=== PATIENT | male | born 1935 | race Caucasian/White ===

== ENCOUNTER 2016-08-04 14:03 | Inpatient (IN) | payer OTHER ==
[2016-08-04] MEDS ORDERED: NS 1,000 ML IV ONE (14:10)
[2016-08-04 15:28] LABS: MANUAL DIFF NEEDED? NO
[2016-08-04] MEDS ORDERED: ZOFRAN IV ONE (15:42)
[2016-08-04] MEDS ORDERED: VANCOMYCIN 1 GM/NS 250 ML IV ONE (15:44)
[2016-08-04] MEDS ORDERED: ZOSYN 3.375 GM/NS 50 ML IV ONE (15:44)
[2016-08-04 15:56] LABS: BASO% 0.1 % (0.0-0.8); EOS% 2.3 % (0.0-10.0); HEMATOCRIT 26.2 % (42.0-52.0); HEMOGLOBIN 8.4 g/dL (14.0-18.0); IMM GRAN# 0.09 X1000 (0.0-0.04); IMM GRAN% 0.5 % (0.0-0.5); LYMPH% 6.2 % (20.5-51.1); MCH 31.5 PG (27-31); MCHC 32.1 g/dL (33-37); MCV 98.1 FL (81-99); MONO# 1.15 X1000 (0.11-0.59); MONO% 6.5 % (1.7-9.3); MPV 8.8 FL (7.4-10.4); NEUT% 84.4 % (42.2-75.2); PLT 604 X1000 (130-400); RBC 2.67 XMIL (4.7-6.1)
[2016-08-04 16:17] LABS: ALBUMIN 3.2 g/dL (3.5-5.0); CALCIUM 7.9 mg/dL (8.8-10.2); POTASSIUM 6.2 mmol/L (3.5-5.1); TOTAL BILIRUBIN 0.26 mg/dL (0.20-1.00); TOTAL PROTEIN 6.6 g/dL (6.3-8.3)
[2016-08-04] MEDS ORDERED: CALCIUM GLUCONATE 1 GM in NS 50 ML IV ONE (16:23)
[2016-08-04] MEDS ORDERED: HUMULIN R IV ONE (16:24)
[2016-08-04] MEDS ORDERED: D50W SYRINGE IV ONE (16:24)
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
[2016-08-04 16:32] LABS: URINE MICRO REVIEW NEEDED? NO; URINE SOURCE CATH
[2016-08-04 17:00] LABS: BILIRUBIN URINE NEGATIVE (NEGATIVE); BLOOD URINE TRACE (NEGATIVE); COLOR YELLOW; GLUCOSE URINE NEGATIVE (NEGATIVE); LEUKOCYTES URINE LARGE (NEGATIVE); NITRITE URINE POSITIVE (NEGATIVE); PH URINE 6.5; PROTEIN URINE 100 mg/dL (NEGATIVE); SP GRAVITY URINE 1.017; TURBIDITY URINE HAZY (CLEAR); UR EPITHELIAL CELLS <10 /HPF (<10); URINE BACTERIA 4+ /HPF; URINE CULTURE NEEDED? YES; URINE WBC TNTC /HPF (<10); UROBILINOGEN URINE NORMAL (NORMAL)
[2016-08-04] MEDS ORDERED: DUONEB (A & A) INH ONE (17:54)
--- NOTE | 2016-08-04 18:23 | Diag Imaging Result Document ---
PROCEDURE NAME: FLAT/UPRIGHT ABD/1 VIEW CHEST - 08/04/2016 FLAT AND UPRIGHT ABDOMEN: FINDINGS: There is a large amount of stool present in the colon. This includes the rectum. There is some small bowel gas. The stomach is not distended and there is no evidence of organomegaly or mass. IMPRESSION: Severe constipation with fecal impaction. AP CHEST: FINDINGS: There is apparent fibrosis in the left upper chest which has not changed since 07/10/2015. The inspiration is suboptimal. There may be atelectasis in the right lower lobe. IMPRESSION: Right lower lobe atelectasis.
--- NOTE | 2016-08-04 19:38 | Diag Imaging Result Document ---
PROCEDURE NAME: CT ABD/PELVIS ORAL CONTR ONLY - 08/04/2016 FINDINGS: There are ill-defined opacities in both lower lobes which are no present, or are much worse, than on the previous study of 08/08/2015. There may be some early bronchiectasis. There is pleural fluid on the right. The effusion on the left which was present previously has diminished and there was no previous right effusion. The liver, adrenal glands and spleen are stable in appearance. There is a large hiatal hernia. The pancreas is stable in appearance. There is still a very large amount of stool throughout the colon. The cecum is in the right upper quadrant. 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 There is small bowel present anterior to the transverse colon. No evidence of obstruction is present, however. Contrast has not quite reached the cecum, but is seen in the distal ileum. The kidneys are stable in appearance. There is no evidence of significant adenopathy. There is no evidence of abdominal aortic aneurysm. CT of the pelvis with oral but no intravenous contrast: There is a large amount of stool in the rectosigmoid colon. There is a suprapubic tube with its tip in the bladder. The bladder is markedly hyperdense and not nearly as distended as on the previous study. There is no evidence of free fluid. There is a large amount of stool in the rectum. IMPRESSION: 1. Constipation with fecal impaction. 2. Right pleural effusion and bilateral lower lobe pneumonia.
[2016-08-04] MEDS ORDERED: TYLENOL PO PRN (21:59)
[2016-08-04] MEDS ORDERED: DUONEB (A & A) INH PRN (22:05)
[2016-08-04] MEDS ORDERED: VANCOMYCIN IV PER PHARMACY MISC SCH (22:15)
[2016-08-04] MEDS: DUONEB (A & A) INH SCH (23:30)
[2016-08-05] MEDS ORDERED: DUONEB (A & A) INH SCH (02:00)
[2016-08-05] MEDS: ZOSYN 3.375 GM/NS 50 ML IV SCH ×4 (02:50→20:50)
[2016-08-05] MEDS: DUONEB (A & A) INH SCH ×5 (03:30→23:27)
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
[2016-08-05 07:25] LABS: MANUAL DIFF NEEDED? NO
[2016-08-05 07:30] LABS: BASO% 0.4 % (0.0-0.8); EOS# 0.67 X1000 (0.0-0.7); EOS% 5.9 % (0.0-10.0); HEMATOCRIT 23.8 % (42.0-52.0); HEMOGLOBIN 7.5 g/dL (14.0-18.0); IMM GRAN# 0.07 X1000 (0.0-0.04); IMM GRAN% 0.6 % (0.0-0.5); LYMPH# 1.16 X1000 (1.2-3.4); LYMPH% 10.3 % (20.5-51.1); MCH 30.9 PG (27-31); MCHC 31.5 g/dL (33-37); MCV 97.9 FL (81-99); MONO# 0.98 X1000 (0.11-0.59); MONO% 8.7 % (1.7-9.3); MPV 8.5 FL (7.4-10.4); NEUT% 74.1 % (42.2-75.2); PLT 457 X1000 (130-400); RBC 2.43 XMIL (4.7-6.1)
[2016-08-05] MEDS: SPIRIVA INH SCH (07:50)
[2016-08-05 07:58] LABS: CALCIUM 7.9 mg/dL (8.8-10.2); POTASSIUM 5.7 mmol/L (3.5-5.1)
--- NOTE | 2016-08-05 08:06 | Diag Imaging Result Document ---
PROCEDURE NAME: CHEST-PORTABLE - 08/05/2016 AP PORTABLE CHEST: TIME: 0500 hours. FINDINGS: There is slightly worsened alveolar opacity in the right lower lobe compared to 08/04/2016. Otherwise, the lungs are actually better expanded. IMPRESSION: Right lower lobe pneumonia.
[2016-08-05] MEDS: LASIX PO SCH ×2 (10:05→20:50)
[2016-08-05] MEDS: COREG PO SCH ×2 (10:05→20:50)
[2016-08-05] MEDS: CORDARONE PO SCH (10:05)
[2016-08-05] MEDS: THERA M PLUS PO SCH (10:05)
[2016-08-05] MEDS: DIFLUCAN PO SCH (10:05)
[2016-08-05] MEDS: VITAMIN B-12 PO SCH (10:06)
[2016-08-05] MEDS: VITAMIN D PO SCH (10:06)
[2016-08-05] MEDS: HEPARIN SUBQ SCH ×2 (10:13→20:50)
[2016-08-05] MEDS: LACTULOSE PO SCH ×3 (11:15→20:50)
--- NOTE | 2016-08-05 12:01 | PROGRESS NOTE ---
DATE: 08/05/2016 SUBJECTIVE: Patient reports feeling a little bit better. Breathing better. Denies any fever or chills. OBJECTIVE: Vital Signs: Temperature 97.4 degrees, heart rate 73, respiratory rate 16, blood pressure 161/73. O2 saturation 100% on room air. General: This is a chronically ill-looking, 80-year-old male, lying in bed, in no acute distress. HEENT: Head is normocephalic, atraumatic. Anicteric sclerae and pale conjunctivae. Mucous membranes dry. Neck: Supple. No JVD noted. No carotid bruits. No lymphadenopathy. No thyromegaly. Cardiovascular: S1, S2 heard. No murmurs, gallops, or rubs. irregularly irregular heart rhythm. Respiratory: Crackles in both bases, mostly more predominant in the right side. Patient is not using any accessory muscles or having work of breathing. Abdomen: Soft, nontender to palpation. Bowel sounds present. No organomegaly. Genitourinary: Suprapubic catheter in place with sis color. Extremities: No clubbing, cyanosis, or edema. Peripheral pulses present in both legs. Neurological: Definitely this patient is more alert today. Answers questions and follows simple commands. LABORATORY DATA: White cell count 11.31, hemoglobin 7.5, hematocrit 23.8, platelets 479,000. Sodium 138, potassium 5.7 chloride 100, bicarbonate 25, BUN 74, creatinine 5.2. Glucose 79. ASSESSMENT: 1. Left lower lobe pneumonia. 2. Urinary tract infection associated to suprapubic catheter. 3. Severe constipation. 4. Chronic atrial fibrillation. 5. Abdominal pain. 6. Acute on chronic kidney disease. 7. Hyperkalemia. PLAN: 1. At this time, we are going to continue with the same treatment for pneumonia. Blood cultures are negative and urine culture is still pending. 2. For severe constipation we are going to use lactulose, as per family request , because they reported this medication worked in the past. If not, we are going to try GoLYTELY. 3. For chronic atrial fibrillation the family reports that he is not on any aspirin or Eliquis because of GI bleeding that happened last year. 4. Regarding acute on chronic kidney disease actually the creatinine is in the baseline so I do not think we need to do anything for this patient in terms of chronic kidney disease. 5. We will continue checking BMP daily. [facility]
[2016-08-05] MEDS: ZOFRAN IV PRN (13:37)
[2016-08-05] MEDS: VELTASSA PO SCH (13:40)
[2016-08-05] MEDS: DESYREL PO SCH (20:50)
[2016-08-06] MEDS: ZOSYN 3.375 GM/NS 50 ML IV SCH ×4 (02:50→21:34)
[2016-08-06] MEDS: DUONEB (A & A) INH SCH ×6 (03:35→23:13)
[2016-08-06 06:47] LABS: MANUAL DIFF NEEDED? NO
[2016-08-06 06:59] LABS: BASO% 0.7 % (0.0-0.8); EOS# 0.91 X1000 (0.0-0.7); EOS% 9.2 % (0.0-10.0); HEMATOCRIT 24.9 % (42.0-52.0); HEMOGLOBIN 8.1 g/dL (14.0-18.0); IMM GRAN# 0.07 X1000 (0.0-0.04); IMM GRAN% 0.7 % (0.0-0.5); LYMPH# 0.89 X1000 (1.2-3.4); MCHC 32.5 g/dL (33-37); MCV 98.4 FL (81-99); MONO# 0.92 X1000 (0.11-0.59); MONO% 9.3 % (1.7-9.3); MPV 8.5 FL (7.4-10.4); NEUT% 71.1 % (42.2-75.2); PLT 478 X1000 (130-400); RBC 2.53 XMIL (4.7-6.1)
[2016-08-06] MEDS: SPIRIVA INH SCH (07:24)
[2016-08-06 07:41] LABS: CALCIUM 8.3 mg/dL (8.8-10.2); POTASSIUM 5.2 mmol/L (3.5-5.1)
[2016-08-06] MEDS: HEPARIN SUBQ SCH ×2 (08:45→21:35)
[2016-08-06] MEDS: VITAMIN B-12 PO SCH (08:45)
[2016-08-06] MEDS: CORDARONE PO SCH (08:45)
[2016-08-06] MEDS: COREG PO SCH ×2 (08:45→21:35)
[2016-08-06] MEDS: THERA M PLUS PO SCH (08:45)
[2016-08-06] MEDS: LASIX PO SCH ×2 (08:45→21:35)
[2016-08-06] MEDS: VITAMIN D PO SCH (08:45)
[2016-08-06] MEDS: DIFLUCAN PO SCH (08:45)
[2016-08-06] MEDS: LACTULOSE PO SCH ×2 (08:51→21:41)
[2016-08-06] MEDS: VELTASSA PO SCH (14:29)
--- NOTE | 2016-08-06 16:54 | PROGRESS NOTE ---
DATE: 08/06/2016 SUBJECTIVE: Patient reports breathing better. No shortness of breath. No fever or chills. OBJECTIVE: Vital Signs: Temperature 97.8 degrees, heart rate 75, respiratory 19, blood pressure 135/68, O2 saturation 95% on 2 L nasal cannula. General Examination: This is a chronically ill- looking, 80-year-old male, lying in bed, in no acute distress. HEENT: Head is normocephalic, atraumatic. Anicteric sclerae. Pale conjunctivae. Mucous membranes moist. Neck: Supple. No JVD noted. No carotid bruits. No lymphadenopathy. No thyromegaly. Cardiovascular: S1 and S2 heard. No murmurs, gallops, or rubs. Regular rate and rhythm. Respiratory: S1, S2 heard. Irregularly irregular. No murmurs, gallops, or rubs. Respiratory: Crackles in both bases, better in comparing with yesterday. Those are more prominent in the right side. The patient is not using any accessory muscles or having work of breathing. Abdomen: Soft. Nontender to palpation. Bowel sounds present. No organomegaly. Genitourinary: Suprapubic catheter in place with sis color urine coming out. Extremities: No clubbing, cyanosis, or edema. Peripheral pulses present in both legs. Neurological: Patient is more alert today. Answers questions appropriately. LABORATORY DATA: White cell count 9.89, hemoglobin 8.1, hematocrit 24.9, platelets 478,000. Sodium 136, potassium 5.2, chloride 98, bicarbonate 23, BUN 67, creatinine 4.9. ASSESSMENT: 1. Left lower lobe pneumonia. 2. Methicillin-resistant Staphylococcus aureus urinary tract infection. 3. Severe constipation. 4. Chronic atrial fibrillation. 5. Abdominal pain. 6. Acute on chronic kidney disease. 7. Hyperkalemia. PLAN: At this point we are going to continue with the same treatment for pneumonia. Urine culture shows MRSA growing in the urine so we are going to continue with vancomycin and we will consult ID. For severe constipation, we will continue with lactulose. For chronic atrial fibrillation, the patient is not on any blood thinners including aspirin or Eliquis. Regarding acute on chronic kidney disease, the patient is at baseline. Will continue with the same management.
[2016-08-06] MEDS: DESYREL PO SCH (21:35)
[2016-08-06] MEDS: TESSALON PO SCH (21:40)
[2016-08-07] MEDS: ZOSYN 3.375 GM/NS 50 ML IV SCH ×4 (03:02→21:10)
[2016-08-07] MEDS: DUONEB (A & A) INH SCH ×6 (03:32→23:01)
[2016-08-07 06:34] LABS: MANUAL DIFF NEEDED? NO
[2016-08-07 06:42] LABS: BASO% 0.7 % (0.0-0.8); EOS# 1.19 X1000 (0.0-0.7); EOS% 10.8 % (0.0-10.0); HEMOGLOBIN 8.2 g/dL (14.0-18.0); IMM GRAN# 0.11 X1000 (0.0-0.04); LYMPH# 1.38 X1000 (1.2-3.4); LYMPH% 12.5 % (20.5-51.1); MCH 30.8 PG (27-31); MCHC 31.5 g/dL (33-37); MCV 97.7 FL (81-99); MONO# 1.11 X1000 (0.11-0.59); MPV 8.6 FL (7.4-10.4); PLT 521 X1000 (130-400); RBC 2.66 XMIL (4.7-6.1)
[2016-08-07] MEDS: SPIRIVA INH SCH (07:14)
[2016-08-07 07:23] LABS: CALCIUM 8.1 mg/dL (8.8-10.2); POTASSIUM 4.8 mmol/L (3.5-5.1)
--- NOTE | 2016-08-07 07:48 | CONSULTATION ---
DATE OF CONSULTATION: 08/07/2016 CONCLUSION: The patient initially was in the emergency room because he had not passed a bowel movement in many days. On CT scan, he had a lot of constipation. I have been asked to see the patient because he has a right lower lobe pneumonia with effusion. The patient has a history of prior episodes of pneumonia. RECOMMENDATIONS: I agree with the treating the patient with a combination of vancomycin and Zosyn. I have ordered immunoglobulin levels on the patient. DISCUSSION: The patient does talk, but I cannot understand what he is saying. He is unable to be a source for his past medical history. The information I have obtained is from a review of the computer data. PAST MEDICAL HISTORY: The patient has a medical history that is positive for atrial fibrillation, COPD, hypertension, gastroesophageal reflux disease, end-stage renal disease, coronary artery disease. SOCIAL HISTORY: The patient has a history of cigarette smoking, which he stopped in the past year. PAST SURGICAL HISTORY: The patient has a surgical history positive for hernia repair and a GI tract surgery. REVIEW OF SYSTEMS: I am unable to obtain a review of systems from the patient. ALLERGIES: The patient is allergic to sulfa. HOME MEDICATIONS: His home medications include the following: Desyrel, Spiriva inhaler, Lasix, multivitamins, fluconazole, vitamin B12, vitamin D3, Coreg, Cordarone, and albuterol inhaler. PHYSICAL EXAMINATION: Vital Signs: The patient's temperature is 97.6 degrees, pulse 71, respirations 18. Blood pressure 125/62. The patient's weight is listed as 162 pounds. General: This is an ill-appearing elderly male. He is in no acute distress. Head Eyes, Ears, Nose, and Throat: No drainage noted from the nose or ears. He had poor oral hygiene. There were no white patches on his tongue. Neck: No meningismus. Lungs: There were a few crackles heard in the right base. The left lung was clear. Cardiovascular: Heart rate was regular. Abdomen: Soft and nontender. Extremities: The patient does not have any edema, but he has diminished peripheral pulses in the legs. CE and CE thank you. Thank you for the consultation.
[2016-08-07] MEDS: LACTULOSE PO SCH ×2 (08:20→21:09)
[2016-08-07] MEDS: LASIX PO SCH ×2 (08:20→21:09)
[2016-08-07] MEDS: THERA M PLUS PO SCH (08:20)
[2016-08-07] MEDS: DIFLUCAN PO SCH (08:20)
[2016-08-07] MEDS: TESSALON PO SCH ×3 (08:21→17:39)
[2016-08-07] MEDS: VITAMIN D PO SCH (08:22)
[2016-08-07] MEDS: HEPARIN SUBQ SCH ×2 (08:22→21:10)
[2016-08-07] MEDS: VITAMIN B-12 PO SCH (08:22)
[2016-08-07] MEDS: COREG PO SCH ×2 (08:22→21:09)
[2016-08-07] MEDS: CORDARONE PO SCH (08:22)
[2016-08-07] MEDS ORDERED: TESSALON PO SCH (09:00)
[2016-08-07] MEDS: VELTASSA PO SCH (13:54)
--- NOTE | 2016-08-07 14:46 | PROGRESS NOTE ---
DATE: 08/07/2016 SUBJECTIVE: Patient is breathing better and he is definitely more alert. OBJECTIVE: Vital Signs: Temperature 97.5 degrees, respiratory rate 20, blood pressure 121/73, and O2 saturation 95% on 2 L nasal cannula. General Examination: This is a chronically ill- looking and frail, 80-year-old male, lying in bed in no acute distress. HEENT: Head is normocephalic, atraumatic. Neck: Supple. No JVD noted. No carotid bruits. Cardiovascular: S1, S2 heard. No murmurs, gallops, or rubs. Regular rate and rhythm. Respiratory exam: Irregularly irregular heart rhythm. No murmurs, gallops, or rubs. On respiratory exam, crackles in both bases definitely better in comparing with yesterday. Very few wheezes also noted in the right side. Abdomen: Soft, nontender to palpation. Bowel sounds present. No organomegaly. Extremities: No clubbing or cyanosis. Genitourinary: Suprapubic catheter in place with sis color urine coming out. Neurological exam: Patient is more alert today. He was trying to walk with assistance. LABORATORY DATA: White cell count 11.05, hemoglobin 8.2, hematocrit 26.0, platelets 521. BMP unremarkable except for BUN 60 and creatinine 4.8. ASSESSMENT AND PLAN: 1. Left lower lobe pneumonia. 2. Methicillin-resistant Staphylococcus aureus urinary tract infection. 3. Severe constipation. 4. Chronic kidney disease. 5. Chronic atrial fibrillation. 6. Hyperkalemia. PLAN: At this point, the patient is being treated for urinary tract infection by MRSA and also bilateral pneumonia. We have consulted Dr. Willoughby from infectious disease to help us in the management of both conditions. I think because of history of MRSA the patient is going to need an IV access to receive antibiotics, so we are going to go ahead and get further consult for a PICC line. Will see what ID has to say regarding the length of treatment. For chronic atrial fibrillation, he is not on any blood thinner and for acute on chronic kidney disease we are following this patient as well. Regarding deconditioning, he is working with physical therapy, who thinks that he probably may need home health with physical therapy 3 times per week. In any case, we will continue working with physical therapy. Probably he can be discharged within the next 2 days.
[2016-08-07 15:00] LABS: INR 1.07; PROTIME 11.4 Seconds (9.2-11.7)
[2016-08-07] MEDS ORDERED: VANCOMYCIN 1 GM/NS 250 ML IV SCH ×2 (17:00→18:00)
[2016-08-07] MEDS: DESYREL PO SCH (21:09)
[2016-08-08] MEDS: ZOSYN 3.375 GM/NS 50 ML IV SCH (04:09)
[2016-08-08] MEDS: DUONEB (A & A) INH SCH ×6 (04:27→22:42)
[2016-08-08 06:39] LABS: MANUAL DIFF NEEDED? NO
[2016-08-08 07:13] LABS: BASO% 0.6 % (0.0-0.8); EOS# 1.07 X1000 (0.0-0.7); EOS% 9.7 % (0.0-10.0); HEMATOCRIT 25.8 % (42.0-52.0); HEMOGLOBIN 8.1 g/dL (14.0-18.0); IMM GRAN# 0.29 X1000 (0.0-0.04); IMM GRAN% 2.6 % (0.0-0.5); LYMPH# 1.61 X1000 (1.2-3.4); LYMPH% 14.6 % (20.5-51.1); MCH 30.8 PG (27-31); MCHC 31.4 g/dL (33-37); MCV 98.1 FL (81-99); MONO# 1.14 X1000 (0.11-0.59); MONO% 10.3 % (1.7-9.3); MPV 8.4 FL (7.4-10.4); NEUT% 62.2 % (42.2-75.2); PLT 510 X1000 (130-400); RBC 2.63 XMIL (4.7-6.1)
[2016-08-08 07:33] LABS: CALCIUM 8.1 mg/dL (8.8-10.2); POTASSIUM 4.6 mmol/L (3.5-5.1)
[2016-08-08] MEDS: SPIRIVA INH SCH (08:24)
--- NOTE | 2016-08-08 08:42 | PROGRESS NOTE ---
DATE: 08/08/2016 SUBJECTIVE: PRESENT ILLNESS: The patient is being treated from infectious disease point of view for pneumonia. He does also have a methicillin-resistant Staph aureus urinary tract infection. MEDICATIONS: The patient is receiving a combination of vancomycin and Zosyn. LABORATORY DATA: WBC is 9180, hemoglobin 7.1, and platelet count 571,000. Creatinine is 2. The GFR is 34. PHYSICAL EXAMINATION: Vital Signs: Temperature is 97.7 degrees, pulse 79, respirations 20, blood pressure 119/68. General: This is an ill-appearing, elderly male. He is in no acute distress. The patient is extremely difficult understand when he talks. Extremities: Patient has a swelling of the left hand where an IV site is. Lungs: Clear to auscultation. Cardiovascular: Regular heart rate. Abdomen: Soft and nontender, suprapubic tube is in place. Extremities: Patient has a swollen left hand. LAB AND X-RAY: There is no new x-ray. The lab shows a CBC with a white count of 11,040, hemoglobin 8.1, and platelet count 510,000. Creatinine is 4.8. GFR is 12. Blood cultures are negative. Urine is growing methicillin-resistant Staph aureus. The sputum culture is growing MRSA as well. ASSESSMENT AND PLAN: The patient does have MRSA pneumonia and UTI. The plan is to continue with vancomycin and stop Zosyn. COMORBIDITIES: 1. Chronic obstructive pulmonary disease 2. Elderly. 3. Gastroesophageal reflux disease. 4. End-stage renal disease. 5. Coronary artery disease. [facility]
[2016-08-08] MEDS ORDERED: NS 250 ML ONE (08:50)
[2016-08-08] MEDS: CORDARONE PO SCH (08:51)
[2016-08-08] MEDS: VITAMIN D PO SCH (08:51)
[2016-08-08] MEDS: VITAMIN B-12 PO SCH (08:51)
[2016-08-08] MEDS: DIFLUCAN PO SCH (08:51)
[2016-08-08] MEDS: THERA M PLUS PO SCH (08:51)
[2016-08-08] MEDS: TESSALON PO SCH ×3 (08:51→17:31)
[2016-08-08] MEDS: COREG PO SCH ×2 (08:51→21:26)
[2016-08-08] MEDS: LASIX PO SCH ×2 (08:51→21:26)
[2016-08-08] MEDS: HEPARIN SUBQ SCH ×2 (08:51→21:26)
[2016-08-08] MEDS: LACTULOSE PO SCH ×2 (08:52→21:26)
--- NOTE | 2016-08-08 13:08 | PROGRESS NOTE ---
DATE: 08/08/2016 SUBJECTIVE: Patient is feeling better. Breathing better. Sitting in the chair, more alert and awake. OBJECTIVE: Vital Signs: Temperature 97.7, heart rate 72, respiratory rate 16, blood pressure 117/68, O2 saturation 98% on 2 L nasal cannula. General Examination: This is a chronically ill- looking, frail and hard of hearing 80-year-old, male, lying in bed, in no acute distress. HEENT: Head is normocephalic, atraumatic. Anicteric sclerae and pale conjunctivae. Neck: Supple. No JVD noted. No carotid bruits. No lymphadenopathy. No thyromegaly. Cardiovascular: S1, S2 heard. No murmurs, gallops, or rubs. Regular rate and rhythm. Respiratory: There are some coarse breath sounds in both bases, but the patient is not using any accessory muscles or having work of breathing. Crackles in both bases but definitely better in comparing with yesterday. Still with some few wheezing also noted in the right side. Abdomen: Soft, nontender to palpation. Bowel sounds present. No organomegaly. Cardiovascular: S1, S2 heard. Irregularly irregular heart rhythm. No murmurs, gallops, or rubs. Extremities: No clubbing, cyanosis. Genitourinary: Suprapubic catheter in place. Neurological: Patient is more alert today. Trying to walk with assistance. LABORATORY DATA: White cell count 11.04, hemoglobin 8.1, hematocrit 25.8, platelets 510. BMP unremarkable except BUN 55, creatinine 4.8. Immunoglobulin, AG and M were completely normal. ASSESSMENT: 1. Methicillin resistant Staph aureus left lower lobe pneumonia. 2. MRSA urinary tract infection. 3. Severe constipation. 4. Chronic kidney disease stage 5. 5. Chronic atrial fibrillation. PLAN: At this time, we have isolated causative agent for pneumonia and UTI in this case is MRSA. Dr. Willoughby from [place] is following this patient. Initially, he was on vancomycin and Zosyn, but the last antibiotics have been discontinued. We will continue following recommendations from Dr. Willoughby. The patient has got a PICC line in anticipation for a longer IV treatment needed. We are going to talk with Dr. Willoughby to see for how long this patient will need antibiotics and clinically he is improving, so patient can be safely discharged to home with home health when treated by Infectious Disease.
[2016-08-08] MEDS: VELTASSA PO SCH (13:49)
[2016-08-08] MEDS: DESYREL PO SCH (21:27)
[2016-08-09] MEDS: DUONEB (A & A) INH SCH ×3 (03:29→11:46)
[2016-08-09 05:07] VITALS: BP 128/55
[2016-08-09 07:36] LABS: BASO% 0.8 % (0.0-0.8); EOS# 1.21 X1000 (0.0-0.7); EOS% 9.9 % (0.0-10.0); HEMOGLOBIN 7.9 g/dL (14.0-18.0); IMM GRAN# 0.51 X1000 (0.0-0.04); IMM GRAN% 4.2 % (0.0-0.5); LYMPH# 2.08 X1000 (1.2-3.4); MANUAL DIFF NEEDED? YES; MCH 31.2 PG (27-31); MCHC 31.6 g/dL (33-37); MCV 98.8 FL (81-99); MONO# 1.11 X1000 (0.11-0.59); MONO% 9.1 % (1.7-9.3); MPV 8.4 FL (7.4-10.4); PLT 480 X1000 (130-400); RBC 2.53 XMIL (4.7-6.1)
[2016-08-09 07:38] LABS: CALCIUM 7.7 mg/dL (8.8-10.2); POTASSIUM 3.8 mmol/L (3.5-5.1)
[2016-08-09] MEDS: SPIRIVA INH SCH (07:39)
[2016-08-09] MEDS: ZOFRAN IV PRN (08:29)
[2016-08-09 08:37] LABS: BANDS 2 % (0-1); LYMPHS 24 % (21-51); MONO 6 % (1-9)
[2016-08-09] MEDS: VITAMIN D PO SCH (09:09)
[2016-08-09] MEDS: VITAMIN B-12 PO SCH (09:09)
[2016-08-09] MEDS: DIFLUCAN PO SCH (09:09)
[2016-08-09] MEDS: THERA M PLUS PO SCH (09:09)
[2016-08-09] MEDS: TESSALON PO SCH (09:09)
[2016-08-09] MEDS: CORDARONE PO SCH (09:10)
[2016-08-09] MEDS: LASIX PO SCH (09:10)
[2016-08-09] MEDS: LACTULOSE PO SCH (09:10)
[2016-08-09] MEDS: HEPARIN SUBQ SCH (09:10)
[2016-08-09] MEDS: COREG PO SCH (09:10)
[2016-08-09] MEDS: VELTASSA PO SCH (11:13)
--- NOTE | 2016-08-09 12:52 | PROGRESS NOTE ---
DATE: 08/09/2016 PRESENT ILLNESS: The patient is being treated for a methicillin-resistant Staph aureus urinary tract infection and pneumonia. MEDICATIONS: This is day 5 of treatment with vancomycin. LABORATORY DATA: White count today is 12,240, hemoglobin 7.9 and platelet count 480,000, creatinine is 4.7. The IgG and IgA levels are normal. PHYSICAL EXAMINATION: Vital Signs: Temperature is 97.8 degrees, pulse 72, respirations 16, blood pressure 128/55. General: This is an ill-appearing, elderly male. He is in no acute distress. Lungs: Clear to auscultation. Cardiovascular: Heart rate is regular. Abdomen: Soft and nontender. Extremities: Patient has a PICC in his left arm. The site is not erythematous or swollen. ASSESSMENT AND PLAN: Patient has a methicillin-resistant Staph aureus pneumonia and UTI. My plan is to treat him with vancomycin. We are setting up now home IV antibiotics with [facility]. I plan to see the patient back in the office in 3 weeks. COMORBIDITIES: Include chronic obstructive pulmonary disease, gastroesophageal reflux disease, end-stage renal disease and the fact that the patient is elderly.
--- NOTE | 2016-08-10 08:37 | DISCHARGE SUMMARY ---
ADMISSION DATE: 08/04/2016 DISCHARGE DATE: 08/09/2016 CONSULTATION: Dr. Esvin Willoughby. PERTINENT PROCEDURES: Abdomen and pelvis CT shows constipation with fecal impaction, right pleural effusion and bilateral lower lobe pneumonia. DISCHARGE DIAGNOSES: 1. Methicillin-resistant Staphylococcus aureus of the left lower lobe pneumonia. 2. Methicillin-resistant Staphylococcus aureus urinary tract infection. 3. Severe constipation. 4. Chronic kidney disease, stage 5. 5. Chronic atrial fibrillation. HOSPITAL COURSE: Mr. Lane is an 80-year-old male, well known to our service, with a past medical history of atrial fibrillation, hypertension, COPD, lung cancer, pneumonia, small bowel obstruction, peptic ulcer disease, end-stage renal disease, likely dementia. He reported to the ED by family secondary to no bowel movement in 9 days, abdominal distention and discomfort, poor p.o. intolerance. The patient in the ED was hyperkalemia, had hematuria, possible pneumonia. He was initiated on IV antibiotics, pain control, as well as symptom control, bronchodilators. He does also have a history of lung cancer that has not been treated. Also, he has recurrent pneumonia and has a suprapubic catheter. CT of the abdomen only showed constipation with fecal impaction and right pleural effusion and bilateral lower lobe pneumonia. Sputum came back for Staph aureus as well as his urine culture. Dr. Esvin Willoughby was consulted. He is receiving a combination of vancomycin and Zosyn. The patient will be discharged home with home health and IV antibiotics as per Dr. Willoughby. He will follow up with Dr. Willoughby in 3 weeks. The patient does state that he is breathing better. He feels better. He has been getting up to the chair. He is more awake and alert. He did receive a PICC line for anticipation for IV treatment. Vital Signs at time of discharge: Temperature is 97.8 degrees, heart rate 75, respirations 16, blood pressure 128/55, O2 is 96% on room air. DISCHARGE MEDICATIONS: 1. Spiriva 1 puff inhaled RT daily. 2. Vitamin D3 a 1000 units p.o. daily. 3. Vitamin B12 1000 mcg p.o. daily. 4. Lasix 20 mg p.o. b.i.d. 5. Albuterol inhaler 3 mL inhaled q.6 hours. 6. Desyrel 100 mg p.o. at bedtime. 7. Folic acid. 8. Multivitamin 400 mcg p.o. daily. 9. Amiodarone 200 mg p.o. daily. 10. Coreg 6.25 mg p.o. b.i.d. 11. Diflucan 150 mg p.o. daily. 12. IV vancomycin and Zosyn per Dr. Willoughby. DISCHARGE DIET: Regular. FOLLOWUP: The patient is being discharged home with home health and IV antibiotics. He will follow up with Dr. Willoughby in 3 weeks. The patient can return to the ED for any worsening of symptoms. Discharge Time: 35 minutes. Dictated by REGINA Simmons for Robbie Ruth MD [facility]
== END 2016-08-09 14:17 | disposition home health service (06) | DRG 698 ==
LOC: ED 14:03 → EDIPHOLD 22:25 → 3N 08-05 07:43
PROVIDERS: ATTEND Internal Medicine
PROC: 02HV33Z Insertion of Infusion Device into Superior Vena Cava, Percutaneous Approach (ICD-10-PCS; principal; 2016-08-08)
DX: T83.518A Infection and inflammatory reaction due to other urinary catheter, initial encounter (principal); J15.212 Pneumonia due to Methicillin resistant Staphylococcus aureus; N17.9 Acute kidney failure, unspecified; J44.0 Chronic obstructive pulmonary disease with (acute) lower respiratory infection; I12.0 Hypertensive chronic kidney disease with stage 5 chronic kidney disease or end stage renal disease; N18.5 Chronic kidney disease, stage 5; F03.90 Unspecified dementia, unspecified severity, without behavioral disturbance, psychotic disturbance, mood disturbance, and anxiety; I48.2 Chronic atrial fibrillation; C34.92 Malignant neoplasm of unspecified part of left bronchus or lung; E87.5 Hyperkalemia; E86.0 Dehydration; K59.00 Constipation, unspecified; R11.2 Nausea with vomiting, unspecified; J45.909 Unspecified asthma, uncomplicated; I25.10 Atherosclerotic heart disease of native coronary artery without angina pectoris; K21.9 Gastro-esophageal reflux disease without esophagitis; Z79.899 Other long term (current) drug therapy; Z87.11 Personal history of peptic ulcer disease; Z87.891 Personal history of nicotine dependence; B95.62 Methicillin resistant Staphylococcus aureus infection as the cause of diseases classified elsewhere
CPT/HCPCS: 36415; 36569; 71010; 74022; 74176; 80048; 80053; 80202; 81001; 82150; 82550; 82784; 83690; 84484; 85025; 85610; 87040; 87070; 87077; 87088; 87186; 87205; 89220; 94640; 94761; 96365; 96366; 96368; 96372; 96375; J0610; J1644; J2405; J2543; J3370; J7030; J7050; 97001-GP; 97116-GP; 97530-GP

== ENCOUNTER 2016-11-07 16:10 | Inpatient (IN) ==
--- NOTE | 2016-11-07 18:29 | Diag Imaging Result Document ---
PROCEDURE NAME: CHEST-2 VIEWS - 11/07/2016 2 VIEWS OF THE CHEST: FINDINGS: There is chronic opacity in the mid left lung field and in the right base and to some extent the left base. The inspiration is not as optimal as on 10/30/2016 which is probably responsible for most of the difference in the appearance of the chest. There may be slightly more pleural fluid on the right, however. IMPRESSION: Right pleural effusion, possibly slightly larger than on 10/30/2016. Otherwise, stable fibrotic and atelectatic changes.
[2016-11-07] MEDS ORDERED: DUONEB (A & A) INH ONE (19:45)
[2016-11-07 20:06] LABS: MANUAL DIFF NEEDED? NO
[2016-11-07 20:10] LABS: BASO% 0.5 % (0.0-0.8); EOS# 0.58 X1000 (0.0-0.7); HEMATOCRIT 28.4 % (42.0-52.0); HEMOGLOBIN 9.2 g/dL (14.0-18.0); IMM GRAN# 0.15 X1000 (0.0-0.04); LYMPH# 1.72 X1000 (1.2-3.4); LYMPH% 11.7 % (20.5-51.1); MCH 30.6 PG (27-31); MCHC 32.4 g/dL (33-37); MCV 94.4 FL (81-99); MONO% 7.5 % (1.7-9.3); MPV 8.4 FL (7.4-10.4); NEUT% 75.3 % (42.2-75.2); PLT 543 X1000 (130-400); RBC 3.01 XMIL (4.7-6.1)
[2016-11-07 21:00] LABS: CALCIUM 8.4 mg/dL (8.8-10.2); POTASSIUM 5.7 mmol/L (3.5-5.1); TOTAL BILIRUBIN 0.2 mg/dL (0.20-1.00); TOTAL PROTEIN 7.5 g/dL (6.3-8.3)
[2016-11-07] MEDS ORDERED: TAZIDIME 1 GM in NS 50 ML IV ONE (21:00)
[2016-11-07] MEDS ORDERED: LEVAQUIN 750 MG/D5W 750 MG/150 ML IVPB IV ONE ×2 (21:39→23:36)
[2016-11-07 22:24] LABS: URINE SOURCE CATH
[2016-11-07 22:30] LABS: BILIRUBIN URINE NEGATIVE (NEGATIVE); BLOOD URINE NEGATIVE (NEGATIVE); COLOR YELLOW; GLUCOSE URINE NEGATIVE (NEGATIVE); LEUKOCYTES URINE LARGE (NEGATIVE); NITRITE URINE NEGATIVE (NEGATIVE); PROTEIN URINE TRACE mg/dL (NEGATIVE); SP GRAVITY URINE 1.014; TURBIDITY URINE CLEAR (CLEAR); UROBILINOGEN URINE NORMAL (NORMAL)
[2016-11-07 22:32] LABS: URINE MICRO REVIEW NEEDED? YES
[2016-11-07 22:44] LABS: UR EPITHELIAL CELLS <10 /HPF (<10); URINE BACTERIA NEGATIVE /HPF; URINE CULTURE NEEDED? YES; URINE RBC <10 /HPF (<10)
[2016-11-07 22:46] LABS: URINE CASTS NONE SEEN
[2016-11-07 22:47] LABS: URINE CRYSTALS NONE SEEN; URINE SMALL ROUND CELLS RENAL PRESENT
--- NOTE | 2016-11-07 23:34 | HISTORY AND PHYSICAL ---
CHIEF COMPLAINT: Shortness of breath. HISTORY OF PRESENT ILLNESS: Briefly, this is an 80-year-old gentleman. He was discharged on the on oral antibiotics. He is coming in with persistence and a productive cough, shortness of breath. He does not look to be in any respiratory distress. He has a history of COPD, atrial fibrillation, prior lung cancer, MRSA pneumonia. He has been on IV antibiotics before. His last course has been Levaquin for pseudomonas pneumonia for which he is supposed to be taking 3 weeks of Levaquin per Dr. Willoughby. He has not had fevers per se but he has had worsening shortness of breath, worsening cough. Workup today showed a white count of 14,000, his hemoglobin and hematocrit are up 9 and 28, platelets of 543. There is no manual diff on that. He has 75% neutrophils. In any case, creatinine is at baseline although his BUN is up just a little bit but he has CKD stage 5 currently although not on dialysis at this point. The patient's chest x-ray today reveals worsening right lower lobe infiltrate with possible effusion and he was admitted for pneumonia recurrent, failing outpatient treatment. PAST MEDICAL HISTORY: 1. COPD. I believe he is on home oxygen. 2. Paroxysmal atrial fibrillation. 3. Chronic renal failure stage V. 4. Hypertension, essential. 5. Lung cancer history. 6. Diastolic heart failure. PAST SURGICAL HISTORY: 1. He has had a TURP. 2. Inguinal hernia repair. 3. Suprapubic cystostomy. Allergies: Sulfa. FAMILY HISTORY: For cancer colon/throat, diabetes, CAD. MEDICATION LIST: Mucomyst, DuoNebs, Cordarone 200 daily, Tessalon 100 t.i.d., Coreg 6.25 b.i.d., vitamin D3 1000 units daily, B12 1000 units daily, Advair 500/50 b.i.d., multivitamin daily, Lasix 20 b.i.d., Levaquin 500 daily, Protonix 40 b.i.d., MiraLAX 17 daily, Spiriva daily and trazodone 100 at bedtime. REVIEW OF SYSTEMS: All other systems reviewed and are negative. PHYSICAL EXAMINATION: VITAL SIGNS: Blood pressure 172/104, heart rate of 74, respiratory rate of 22, 98.1 temp, 100% percent sat on 2 L. GENERALLY: Well-developed male, appears stated age in no distress. HEENT: Pupils equal, round, reactive to light. Extraocular movements were intact. ENT: He was edentulous. O P were moist. NECK: Supple. No thyromegaly. CARDIOVASCULAR: Regular rate and rhythm. PULMONARY: Diffuse rhonchi, rales at the bases. Some bronchial breath sounds at the right base. GASTROINTESTINAL: Soft, nontender, nondistended. Bowel sounds are positive. EXTREMITIES: No clubbing or cyanosis. LYMPHATICS: No peripheral edema. NEUROLOGICAL: Nonfocal. LABORATORY DATA: Potassium 5.7, BUN and creatinine 71/4.4, sodium 132. White count 14.6 which had been normal previously, hemoglobin and hematocrit 9 and 28, platelets 543. No urine done today. Chest x-ray shows a right lower lobe infiltrate versus possible or with additional effusion. ASSESSMENT: This is an 80-year-old male presenting with persistent pneumonia and possible to some degree volume overload related to his renal and cardiac disease. 1. Right lower lobe pneumonia failing outpatient therapy. I am going to continue the Levaquin. We will do IV based on the sensitivities from his Pseudomonas attained from his sputum. Repeat blood and sputum cultures although they likely will be low yield since he has been on antibiotics and we will follow clinically. He does have a history of MRSA. I think it is reasonable to obtain a sputum, cover with vancomycin. Obviously, we will get Dr. Willoughby to re- evaluate him. I am also going to get Pulmonary opinion. He has seen Dr. Singh in the past who had followed him for the lung cancer issues. I am going to repeat his chest CT obviously without contrast to better delineate a pneumonia versus effusion. 2. Atrial fibrillation, appears to be rate controlled. We will continue his regular medications. 3. Chronic kidney disease level 5. He is at baseline at this point. I believe he is euvolemic. There may be a little bit of volume appending this effusion workup. I am just going to maintain him on his regular medications. We will follow his kidney function. Consult Dr. Hahn if kidney function further deteriorates. 4. Chronic obstructive pulmonary disease. Continue breathing treatments. He is not having a lot of wheezing so I am going to avoid steroids at this point. 5. Anemia. It has actually improved somewhat. We will continue to monitor. DISPOSITION: Pending clinical course. cc: MD Jeovanny Herman MD Leroy F. Harris, MD Faye Wilson, MD
[2016-11-07] MEDS ORDERED: MIRALAX PO PRN (23:36)
[2016-11-07] MEDS ORDERED: TYLENOL PO PRN (23:36)
[2016-11-07] MEDS ORDERED: VANCOMYCIN IV PER PHARMACY MISC SCH (23:36)
[2016-11-08] MEDS: COREG PO SCH ×3 (00:39→20:46)
[2016-11-08] MEDS: PRILOSEC PO SCH ×3 (00:39→20:46)
[2016-11-08] MEDS: DESYREL PO SCH ×2 (00:39→20:46)
[2016-11-08] MEDS: TESSALON PO SCH ×5 (00:40→23:55)
[2016-11-08] MEDS: TAZIDIME 0.5 GM in NS 50 ML IV SCH ×2 (01:00→23:55)
[2016-11-08] MEDS ORDERED: VANCOMYCIN 1,750 MG in NS 500 ML IV ONE (01:00)
--- NOTE | 2016-11-08 02:26 | PROVIDER DOCUMENTATION ---
This chart was entered by Baldo Schulz Scribe, acting as scribe for Alli Russo MD. HPI-Respiratory General - General Chief Complaint: Cough Stated Complaint: COUGHING,SOB,OXYGEN LOW Time Seen by Provider: 11/07/16 19:27 Source: patient, family Allergies/Adverse Reactions: Patient Allergies Allergy/AdvReac Type Severity Reaction Status Date / Time Sulfa (Sulfonamide Allergy NAUSEA/VOMI Verified 11/07/16 19:50 Antibiotics) TING Home Medications: Home Medication List Medication Instructions Recorded Confirmed Last Taken Type Tiotropium [place] Inhaler 1 puff INH RTDAILY 03/21/14 11/07/16 11/07/16 07:00 History [Spiriva] Cholecalciferol (Vitamin D3) 1,000 unit PO DAILY 06/24/15 11/07/16 11/07/16 07: 00 History [Vitamin D3] Cyanocobalamin (Vitamin B-12) 1,000 mcg PO DAILY 06/24/15 11/07/16 11/07/16 07: 00 History [Vitamin B12] Amiodarone [Cordarone] 200 mg PO DAILY #30 tablet 07/05/15 11/07/16 11/07/16 07: 00 Rx Carvedilol [Coreg] 6.25 mg PO BID #60 tablet 07/05/15 11/07/16 11/07/16 07:00 Rx Furosemide [Lasix] 20 mg PO BID 01/10/16 11/07/16 11/07/16 07:00 History Albuterol 2.5MG/Ipratrop 0.5MG 3 ml INH [id number] 02/12/16 11/07/16 11/07/16 14: 00 History [Duoneb (A & A)] Trazodone [Desyrel] 100 mg PO QHS 04/17/16 11/07/16 11/06/16 20:00 History Folic Acid/Multivits-Min [Qc 400 mcg PO DAILY 08/04/16 11/07/16 11/07/16 07:00 History Multivit For Cholesterol Tb] Acetylcysteine 20% [Mucomyst 20%] 3 ml INH [id number] 08/17/16 11/07/16 11/07/16 14 :00 History Albuterol Sulfate [Ventolin Hfa] 18 gm IH PRN PRN 08/17/16 11/07/16 1 Week Ago History Fluticasone/Salmeterol [Advair 1 each IH DAILY 08/17/16 11/07/16 11/07/16 08:00 History 500-50 Diskus] Pantoprazole [Protonix] 40 mg PO BID 08/17/16 11/07/16 11/07/16 07:00 History Polyethylene Glycol 3350 [Miralax] 17 gm PO PRN PRN 08/17/16 11/07/16 09/03/16 History Benzonatate [Tessalon] 100 mg PO TID #30 capsule 10/31/16 11/07/16 11/07/16 12: 00 Rx Levofloxacin [Levaquin] 500 mg PO DAILY #20 tablet 10/31/16 11/07/16 11/07/16 07 :00 Rx - History of Present Illness-Resp Nature of Presenting Problem: Pt is a 80 yom who presents to ER with CC of increased shortness of breath. Pt reports that he was discharged [address] Willoughby (PCP) after being admitted with pneumonia. Pt reports that he has chronic episodes of pneumonia, but he has been producing excessive sputum. Pt's daughter in law reports that she talked to Dr. Willoughby earlier today and was told by Dr. Willoughby to come to ER for readmission. Quality of Pain: reports: none Severity in ED: reports: moderate Onset/Duration: reports: unsure, 1 week ago Timing: reports: still present Cough Quality/Degree: reports: moderate, productive cough, sputum Episode Frequency: chronic episodes Associated Symptoms: reports: cough, hurts to breathe, shortness of breath, short of breath, wheezing. denies: chest pain/soreness, dizziness, earache, facial pain, fever/chills, flu-like symptoms, headache, heart racing, hyperventilating, lightheadedness, muscle/bodyaches, nasal congestion, nasal drainage, sinus pain, sore throat, sweaty Similar Symptoms Previously?: Yes Recently seen or treated by another doctor?: Yes Review of Systems - Adult - REVIEW OF SYSTEMS - ADULT Constitutional: denies: chills, fever, fatique, night sweats, weight gain, weight loss Eyes: reports: no symptoms reported Ears, Nose, Mouth & Throat: reports: no symptoms reported Cardiovascular: denies: chest pain, edema, heart murmur, irregular heart rate, orthopnea, palpitations, poor circulation, PND, syncope Respiratory: reports: chronic cough, cough, excessive sputum production, shortness of breath, wheezing. denies: dyspnea on exertion, hemoptysis, pleurisy Gastrointestinal: denies: abdominal pain, hematemesis, constipation, diarrhea, nausea, poor appetite, vomiting Genitourinary: reports: no symptoms reported Musculoskeletal: reports: no symptoms reported Integumentary: reports: no symptoms reported Neurological: reports: no symptoms reported Psychiatric: reports: no symptoms reported Endocrine: reports: no symptoms reported Hematologic/Lymphatic: reports: no symptoms reported Allergic/Immunologic: reports: no symptoms reported All Other Systems: Reviewed and Negative Past History - Adult - PAST MEDICAL HISTORY-ADULT Review of Records: reports: Nursing Assessment Review, Medications Reviewed Cardiovascular: reports: CHF, HTN Respiratory: reports: asthma, COPD, cancer (left lung), pneumonia Gastrointestinal: reports: obstruction (SB), ulcer (had bleeding ulcer on eliquis in past month) Genitourinary: reports: ESRD, other (chronic renal failure) - PRIOR SURGERIES/PROCEDURES Surgical/Procedure History: reports: hernia repair, bowel surgery - IMMUNIZATION STATUS Childhood Immunizations: See Nurse Assessment Flu Vaccine: See Nurse Assessment - FAMILY HISTORY Family History: reviewed, not pertinent Physical Exam-General - PHYSICAL EXAM-ADULT Initial Vital Signs Reviewed: Yes - CONSTITUTIONAL General Appearance: appears well, alert, mild distress, lethargic, slow to respond. negative: no apparent distress - NECK Neck: non-tender, full range of motion, supple. negative: limited range of motion, lymphadenopathy - RESPIRATORY Respiratory: chest non-tender, wheezing. negative: lungs clear, normal breath sounds - CARDIOVASCULAR Cardiovascular: normal peripheral pulses, systolic murmur (2/6 systolic 2cm to Left sternal border). negative: regular rate, rhythm, bradycardia, tachycardia , irregularly irregular - GASTROINTESTINAL (ABDOMEN) Abdominal Exam: normal bowel sounds, non tender, soft, no organomegaly, no pulsatile mass. negative: abnormal bowel sounds, distended, tenderness - SKIN Integumentary: normal color, warm/dry. 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 negative: facial droop, focal weakness, motor weakness, sensory deficit - PSYCHIATRIC Psych/Mental Status: normal mood/affect, normal thought content, normal thought process, oriented x 3 Progress - PLAN OF CARE/RESULTS Progress/Plan/Lab Results: Vital Signs - 8 hr 11/07/16 16:18 11/07/16 18:56 11/07/16 20:07 Temperature 98.1 F Pulse Rate 76 70 85 Respiratory Rate 24 16 Blood Pressure 131/95 181/136 O2 Sat by Pulse Oximetry 97 100 98 11/07/16 20:40 Temperature Pulse Rate 74 Respiratory Rate 22 Blood Pressure 172/104 O2 Sat by Pulse Oximetry 100 Laboratory Results - last 24 hr 11/07/16 20:00 WBC 14.65 H RBC 3.01 L Hgb 9.2 L Hct 28.4 L MCV 94.4 MCH 30.6 MCHC 32.4 L RDW Std Deviation 15.6 H Plt Count 543 H MPV 8.4 Immature Gran % (Auto) 1.0 H Neut % (Auto) 75.3 H Lymph % (Auto) 11.7 L [place] % (Auto) 7.5 Eos % (Auto) 4.0 Baso % (Auto) 0.5 Immature Gran # (Auto) 0.15 H Neut # (Auto) 11.03 H Lymph # (Auto) 1.72 [place] # (Auto) 1.10 H Eos # (Auto) 0.58 Baso # (Auto) 0.07 Orders Category Date Time Status CHEST-2 VIEWS [RAD] Stat Exams 11/07/16 16:24 Draft CBC WITH ELECTRONIC DIFF [HEME] Stat Lab 11/07/16 20:00 Completed COMPREHENSIVE METABOLIC PANEL [CHEM] Stat Lab 11/07/16 20:00 Received UA NIMS W/REFLEX CULT [URINALYSIS] Stat Lab 11/07/16 19:45 Uncollected Albuterol 2.5MG/Ipratrop 0.5MG [Duoneb (A & A)] Med 11/07/16 19:45 Discontinued 3 ml INH NOW ONE Aerosol Treatments Routine Oth 11/07/16 19:46 Active Aerosol Treatments Stat Oth 11/07/16 19:46 Active Result Diagrams: 11/07/16 20:00 - XRAY 1 XRAY: Bilateral XRAY Study: Chest Impression: See EMR Report (R pleural effusion, possibly slightly larger than on 10/30/2016. Otherwise, stable fibrotic and atelectatic changes) Comparison with other Films: changes noted XRAY Interpretation: See report - CONSULTS/PCP/HOSPITALIST Notification #1 *Consult/PCP/Hospitalist*: Dr. Willoughby (PCP) Time Discussed: 20:40 #2 Consult: Dr. Hand (Hospitalist) Time Discussed: 20:54 Consult Disposition: Admit Departure - Departure Time of Disposition Decision: 20:54 DIAGNOSIS: Bacterial infection due to Morganella morganii, Pneumonia, bacterial Disposition: ADMITTED INPATIENT 09 Certified Medical Emergency: Emergent Condition: Stable Referrals and Follow-Ups: Judith Jolly [Primary Care Provider] - This chart was documented by the indicated scribe, (Baldo Schulz, [place]) and accurately reflects the services I performed and decisions made by me, Alli Russo MD, as attested by the provider's signature.
[2016-11-08] MEDS: DUONEB (A & A) INH SCH ×5 (03:26→20:11)
[2016-11-08] MEDS: MUCOMYST 20% INH SCH ×5 (03:27→20:11)
[2016-11-08 07:22] LABS: MANUAL DIFF NEEDED? NO
[2016-11-08 07:37] LABS: BASO% 0.6 % (0.0-0.8); EOS# 0.53 X1000 (0.0-0.7); EOS% 4.9 % (0.0-10.0); HEMATOCRIT 24.7 % (42.0-52.0); HEMOGLOBIN 7.9 g/dL (14.0-18.0); IMM GRAN# 0.12 X1000 (0.0-0.04); IMM GRAN% 1.1 % (0.0-0.5); LYMPH# 1.53 X1000 (1.2-3.4); LYMPH% 14.1 % (20.5-51.1); MCH 30.2 PG (27-31); MCV 94.3 FL (81-99); MONO% 10.1 % (1.7-9.3); MPV 8.5 FL (7.4-10.4); NEUT% 69.2 % (42.2-75.2); PLT 480 X1000 (130-400); RBC 2.62 XMIL (4.7-6.1)
[2016-11-08 07:49] LABS: POTASSIUM 5.5 mmol/L (3.5-5.1)
[2016-11-08] MEDS: ADVAIR 500/50 DISKUS INH SCH (07:55)
[2016-11-08] MEDS: SPIRIVA INH SCH (07:56)
--- NOTE | 2016-11-08 09:48 | Diag Imaging Result Document ---
PROCEDURE NAME: CT THORAX W/O CONTRAST - 11/08/2016 CT CHEST: A CT dose reduction protocol was used. COMPARISON: 10/30/2016. FINDINGS: There has been minimal decrease in size of the moderate right pleural effusion. There is stable significant, diffuse bilateral tree-in-bud nodular infiltrate with basilar predominance. There is stable bronchitis and bronchiectasis as well, worst in the bases particularly the lobe. Anterior segment of the right upper lobe. Stable large hiatal hernia. Stable borderline cardiomegaly. No new or significant adenopathy. There is moderate constipation stable from prior. Stable old right-sided rib deformities. IMPRESSION: Essentially unchanged from prior. [facility]
[2016-11-08] MEDS: VITAMIN B-12 PO SCH (09:51)
[2016-11-08] MEDS: VITAMIN D PO SCH (09:52)
[2016-11-08] MEDS: CORDARONE PO SCH (09:52)
[2016-11-08] MEDS: HEPARIN SUBQ SCH ×2 (09:52→20:46)
[2016-11-08] MEDS: PATIENT'S OWN MED PO SCH (09:53)
--- NOTE | 2016-11-08 11:08 | PROGRESS NOTE ---
DATE: 11/08/2016 PRESENT ILLNESS: The patient was being treated at home for Pseudomonas pneumonia with p.o. Levaquin. He came in the hospital complaining of right-sided chest pain and being short of breath. MEDICATIONS: The patient at home was taking Levaquin orally as a single drug. Levaquin was the antibiotic he was taking at home. PHYSICAL EXAMINATION: Vital Signs: Temperature is 98.6 degrees, pulse is 70, respirations 20, blood pressure 153/53. General: This is an ill-appearing, elderly male. He is in no acute distress. Cardiovascular: Heart rate was regular. Lungs: There were some diminished breath sounds on the right side. The left side sounded clear. Abdomen: Soft and nontender. LAB AND X-RAY: Chest x-ray shows left-sided opacity and increased right pleural effusion. CT scan of the chest shows a decrease in the right pleural effusion and stable bronchitis and bronchiectasis, bibasilar infiltrates. The laboratory studies show a CBC with a white count of 10,860, hemoglobin 7.9 and platelet count 483,000. Creatinine is 4.3. The GFR is 13. Urinalysis showed yeast and no white cells and no bacteria. The patient had blood and urine cultures pending. ASSESSMENT AND PLAN: The patient has a Pseudomonas pneumonia superimposed on chronic lung disease. I agree with adding ceftazidime to the Levaquin. I have ordered a repeat sputum Gram stain and culture. COMORBIDITIES: The patient's comorbidities include COPD, end-stage renal disease, history of lung cancer, gastroesophageal reflux disease, and pulmonary fibrosis. cc: Esvin Willoughby MD
--- NOTE | 2016-11-08 11:16 | PROGRESS NOTE ---
DATE: 11/08/2016 SUBJECTIVE: Today, Mr. Lane referred to be doing relatively fine. According to the daughter, who was in the room, he was brought in because he got change in the consistency of the sputum production and his O2 saturation at home was some remarkably low. The patient has been treated for MRSA pneumonia and pseudomonal pneumonia recently, since this year. OBJECTIVE: Vital signs: Blood pressure is 153/53, pulse of 72, respirations 21 , and temperature is 98.6 degrees. General: Mr. Lane is an 80-year-old male. He was in bed and did not seem really in any distress. HEENT: Mucosa is pink and moist. Anicteric. Acyanotic. Neck: Supple. I did not appreciate any JVD. Chest: Air entry is bilaterally reduced , more so to the right lower lobe. Vocal fremitus is reduced to that side. There are no bronchial breath sounds, but there are bilateral crepitations. Cardiovascular: Regular rate and rhythm. Abdomen: Soft, nontender. There is a suprapubic catheter in place. Extremities: No pedal edema. Central Nervous System: Patient is awake, alert, and conversational, but easily forgetful. LABORATORY AND IMAGING DATA: WBC is 10.86, hemoglobin is 7.9, platelet count of 180,000. Chemistry is reviewed. Sodium is 134, potassium is 5.5, chloride is 98, bicarbonate is 29, creatinine is 4.3. A CT scan of the chest which was done early this morning shows essentially unchanged from prior. MEDICATIONS: The patient is currently on: 1. Cyanocobalamin. 2. Fluticasone. 3. Heparin. 4. Levofloxacin 250 p.o. daily. 5. Ceftazidime 0.5 g daily. ASSESSMENT: 1. Right lower lobe pneumonia, failing outpatient therapy. Patient was on levofloxacin presumably for Pseudomonas. He is currently on double coverage with ceftazidime and levofloxacin, and has been seen by Infectious Disease. 2. History of paroxysmal atrial fibrillation, currently rate controlled. 3. Chronic kidney disease, stage 5. Nephrology is on board. 4. History of chronic obstructive pulmonary disease. 5. Anemia, likely secondary to chronic kidney disease. 6. Constipation. 7. Hiatal hernia noted on CT scan. PLAN: 1. We are going to continue with the current antibiotic coverage. I have added Lasix for the pleural effusion. The patient was on Lasix before. 2. We would recommend PT and also encourage the patient to sit up in chair. 3. We anticipate the patient's discharge pretty soon. 4. Patient has had 4 admissions since this year, presumably because of the same pneumonia, and clinically he seems to be stable. I will consult Palliative Care for them to discuss goals of care with the daughter. cc: Krystian Black MD MTDD
[2016-11-08] MEDS ORDERED: LACTULOSE PO ONE (17:30)
[2016-11-08] MEDS: LASIX PO SCH (20:46)
[2016-11-09] MEDS: DUONEB (A & A) INH SCH ×4 (03:55→20:03)
[2016-11-09] MEDS: MUCOMYST 20% INH SCH ×4 (03:55→20:03)
[2016-11-09 07:32] LABS: MANUAL DIFF NEEDED? NO
[2016-11-09 07:55] LABS: BASO% 0.7 % (0.0-0.8); EOS# 0.38 X1000 (0.0-0.7); EOS% 4.2 % (0.0-10.0); HEMATOCRIT 25.9 % (42.0-52.0); IMM GRAN# 0.06 X1000 (0.0-0.04); IMM GRAN% 0.7 % (0.0-0.5); LYMPH# 1.45 X1000 (1.2-3.4); LYMPH% 16.2 % (20.5-51.1); MCH 30.1 PG (27-31); MCHC 30.9 g/dL (33-37); MCV 97.4 FL (81-99); MONO% 8.9 % (1.7-9.3); MPV 8.4 FL (7.4-10.4); NEUT% 69.3 % (42.2-75.2); PLT 461 X1000 (130-400); RBC 2.66 XMIL (4.7-6.1)
[2016-11-09 08:07] LABS: CALCIUM 8.6 mg/dL (8.8-10.2); POTASSIUM 5.3 mmol/L (3.5-5.1)
[2016-11-09] MEDS ORDERED: KAYEXALATE PO ONE (08:08)
[2016-11-09 08:58] LABS: CALCIUM 8.6 mg/dL (8.8-10.2)
[2016-11-09] MEDS: ZOFRAN IV PRN (09:40)
[2016-11-09] MEDS: PRILOSEC PO SCH ×2 (09:43→22:20)
[2016-11-09] MEDS: COREG PO SCH ×2 (09:43→22:20)
[2016-11-09] MEDS: HEPARIN SUBQ SCH ×2 (09:43→22:21)
[2016-11-09] MEDS: LASIX PO SCH ×2 (09:43→22:20)
[2016-11-09] MEDS: CORDARONE PO SCH (09:43)
[2016-11-09] MEDS: VITAMIN D PO SCH (09:43)
[2016-11-09] MEDS: LEVAQUIN PO SCH (09:43)
[2016-11-09] MEDS: VITAMIN B-12 PO SCH (09:43)
[2016-11-09] MEDS: TESSALON PO SCH ×2 (09:43→19:55)
[2016-11-09] MEDS: SPIRIVA INH SCH (10:02)
[2016-11-09] MEDS: ADVAIR 500/50 DISKUS INH SCH (10:02)
[2016-11-09] MEDS: PATIENT'S OWN MED PO SCH (11:58)
--- NOTE | 2016-11-09 13:07 | PROGRESS NOTE ---
DATE: 11/09/2016 SUBJECTIVE: Today Mr. Lane referred to be doing fine. He is still kind of concerned that he has not had any bowel movement. OBJECTIVE: Vital signs: Blood pressure is 111/67, pulse 70, respirations 19, temperature 98.0. General: Mr. Lane is an 80-year-old male. He is in bed and does not seem to be in any distress. HEENT: Mucosa is pink and moist. Anicteric and acyanotic. Neck: Supple. Chest: Air entry is bilaterally reduced. There are diffuse bilateral crepitations in the posterior lung solo, and there are end expiratory wheezes more predominantly on the left posterior lung solo. Cardiovascular: Regular rate and rhythm. Abdomen: Soft, nontender. There is an old midline surgical scar on the abdominal wall. Bowel sounds are present. Extremities: No pedal edema. 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 DIAGNOSTIC DATA: WBC is 8.97, hemoglobin 8.0, platelet count of 461. Chemistry reviewed, creatinine is 4.4 consistent with CKD stage 4. Sputum culture so far Gram stain shows 3+ white cells and gram-positive cocci are few. ASSESSMENT: 1. Right lower lobe pneumonia. The patient is being covered with levofloxacin and ceftazidime for double pseudomonas coverage. 2. History of paroxysmal atrial fibrillation, currently rate controlled. 3. Chronic kidney disease stage 5. The patient continues to have remarkably good urine output. 4. Anemia, likely due to chronic kidney disease. 5. Hiatal hernia noted. 6. Constipation. We will continue addressing this with symptomatic therapy. 7. Hyperkalemia. We will give the patient a dose of Kayexalate to help with potassium exchange and also help with bowel movement as well. PLAN: In general, I think Mr. Lane is relatively stable today. He is making good urine output. Last night he had 3000 mL of urine output. We are still working on his bowel movement. We are going to encourage up to chair. We will remove the [place] catheter. We will get PT to work with him. We will give him a dose of Kayexalate for potassium control, and hopefully we will be able to get his bowels to move. From an infectious disease standpoint, the patient is getting double coverage for pseudomonas and is being followed by Dr. Willoughby as well. cc: Krystian Black MD
[2016-11-09] MEDS: DESYREL PO SCH (22:20)
[2016-11-09] MEDS ORDERED: LEVAQUIN 500 MG/D5W 500 MG/100 ML IVPB IV SCH (23:00)
[2016-11-10] MEDS: TAZIDIME 0.5 GM in NS 50 ML IV SCH ×2 (00:10→22:54)
[2016-11-10] MEDS: TESSALON PO SCH ×4 (00:10→23:31)
[2016-11-10] MEDS: DUONEB (A & A) INH SCH ×4 (02:40→20:15)
[2016-11-10] MEDS: MUCOMYST 20% INH SCH ×4 (02:40→20:15)
[2016-11-10 07:00] LABS: MANUAL DIFF NEEDED? NO
[2016-11-10 07:33] LABS: BASO% 0.4 % (0.0-0.8); EOS% 5.3 % (0.0-10.0); HEMATOCRIT 25.8 % (42.0-52.0); HEMOGLOBIN 8.3 g/dL (14.0-18.0); IMM GRAN# 0.08 X1000 (0.0-0.04); IMM GRAN% 0.7 % (0.0-0.5); LYMPH# 1.12 X1000 (1.2-3.4); LYMPH% 9.9 % (20.5-51.1); MCH 30.2 PG (27-31); MCHC 32.2 g/dL (33-37); MCV 93.8 FL (81-99); MONO% 7.1 % (1.7-9.3); MPV 8.6 FL (7.4-10.4); NEUT% 76.6 % (42.2-75.2); PLT 484 X1000 (130-400); RBC 2.75 XMIL (4.7-6.1)
[2016-11-10 07:44] LABS: CALCIUM 8.3 mg/dL (8.8-10.2); POTASSIUM 5.4 mmol/L (3.5-5.1)
[2016-11-10] MEDS: ADVAIR 500/50 DISKUS INH SCH (08:08)
[2016-11-10] MEDS: SPIRIVA INH SCH (08:08)
[2016-11-10] MEDS: VITAMIN B-12 PO SCH (08:54)
[2016-11-10] MEDS: VITAMIN D PO SCH (08:54)
[2016-11-10] MEDS: CORDARONE PO SCH (08:55)
[2016-11-10] MEDS: HEPARIN SUBQ SCH ×2 (08:55→22:12)
[2016-11-10] MEDS: PRILOSEC PO SCH ×2 (08:55→22:11)
[2016-11-10] MEDS: PATIENT'S OWN MED PO SCH (08:55)
[2016-11-10] MEDS: COREG PO SCH ×2 (08:55→22:12)
[2016-11-10] MEDS: LEVAQUIN PO SCH (08:55)
[2016-11-10] MEDS: LASIX IV SCH ×2 (09:11→22:12)
[2016-11-10] MEDS: ZAROXOLYN PO SCH (09:11)
[2016-11-10] MEDS ORDERED: KAYEXALATE PO ONE (10:31)
[2016-11-10] MEDS ORDERED: VELTASSA PO ONE (10:38)
[2016-11-10] MEDS ORDERED: LACTULOSE PO PRN (10:39)
--- NOTE | 2016-11-10 11:16 | PROGRESS NOTE ---
DATE: 11/10/2016 SUBJECTIVE: Today, Mr. Lane refers to be doing fine. Still continues to have issues with bowel movement. OBJECTIVE: Vital Signs: Blood pressure is 160/107, pulse of 80, respirations are 25, temperature is 98.3 degrees. General Examination: Mr. Lane is an 80-year-old, male. He was in bed and does not seems to be in any distress. HEENT: Mucosa is pink and moist. Anicteric and acyanotic. Neck: Supple. Chest: Air entry is bilaterally reduced. There is diffuse bilateral and expiratory rhonchi. There are also diffuse both inspiratory and exploratory coarse crackles in both lung solo. Cardiovascular: Regular rate and rhythm. Abdomen: Soft. Mildly distended but nontender. Bowel sounds are hypoactive. There is an old midline surgical scar on the anterior abdominal wall. Extremities: No pedal edema. LIBRARY MEDIA SPECIALIST: Patient is alert and oriented, and follows commands. Laboratory Data: WBC is 11.26, hemoglobin is 8.3, platelet count of 484,000. Chemistry reviewed. Potassium is 5.4, creatinine is 4.4, BUN is 65, consistent with renal disease. Is and Os, urine output is 1835 which is pretty adequate for him. ASSESSMENT: 1. Acute respiratory distress which sounds to be multifactorial including right lower lobe pneumonia, pleural effusions. 2. Right lower lobe pneumonia. Patient is being treated with double coverage for Pseudomonas. 3. Pulmonary edema with bilateral pleural effusions, likely due to acute on chronic congestive heart failure. 4. Chronic obstructive pulmonary disease, possibly with exacerbation. Patient is on antibiotics, getting nebulization. We will add low-dose steroid to see if it improves his lung findings. 5. Chronic kidney disease stage V. Patient continues to have good urine output. 6. Hyperkalemia due to underlying kidney disease. We will give another dose of Kayexalate and add Veltassa. 7. Constipation. We will address this symptomatically. 8. History of hiatal hernia, noted. 9. Anemia due to chronic kidney disease, stable. 10. Acute on chronic diastolic heart failure. The patient has an ejection fraction of 65 with normal wall thickness on an echocardiogram in 2016. However, does have biatrial enlargement. 11. Atrial fibrillation, currently rate controlled. 12. History of left lung adenocarcinoma with bronchoalveolar pattern, status post radiation. This was diagnosed in 2013. PLAN: In general, Mr. Lane seems to be stable. I think his main issues now are the constipation and his lung findings. We are going to increase his Lasix to b.i.d. I will add metolazone to enhance the diuretic effect of the Lasix. We will add low-dose steroids p.o. for the COPD and we will continue with the current antibiotics. We will give the patient Kayexalate and Veltassa for the potassium and give him a dose of lactulose for the constipation. cc: Krystian Black MD [facility]
[2016-11-10] MEDS: ZOFRAN IV PRN (11:18)
[2016-11-10] MEDS: PREDNISONE PO SCH (15:10)
[2016-11-10] MEDS: DESYREL PO SCH (22:12)
[2016-11-11] MEDS ORDERED: VANCOMYCIN 1,350 MG in NS 250 ML IV SCH (01:00)
--- NOTE | 2016-11-11 02:40 | CONSULTATION ---
DATE OF CONSULTATION: 11/08/2016 REFERRING MD: Dr. Black. CHIEF COMPLAINT: Shortness of breath. Productive sputum. HPI: This 80-year-old male has complaint of shortness of breath with persistent production of productive cough admitted with recurrent pneumonia and failed outpatient treatment. He had end-stage chronic kidney disease stage 5 but no dialysis treatment at this time. Chest x- ray revealed worsening right lower lobe infiltrate with possible effusion. PAST MEDICAL HISTORY: COPD, atrial fibrillation, chronic renal failure stage 5, hypertension essential, lung cancer history, diastolic heart failure. PAST SURGICAL HISTORY: He has had a TURP, inguinal hernia repair, suprapubic cystostomy. ALLERGIES: Sulfa. FAMILY HISTORY: Colon cancer, throat cancer, diabetes and coronary artery disease. MEDICATIONS: Mucomyst, duo nebs, Cordarone 200 daily, Tessalon Perles 100 mg t.i.d., Coreg 6.25 b.i.d., vitamin D3 1000 units daily, B12 1000 units daily, Advair Diskus 500/50 b.i.d., multivitamin daily, Lasix 20 b.i.d., Levaquin 500 daily, Protonix 40 b.i.d., MiraLAX 17 daily, Spiriva daily and trazodone 100 at bedtime. REVIEW OF SYSTEMS: A 10-point review of systems was conducted and the pertinent is listed in the HPI, otherwise noncontributory. PHYSICAL EXAMINATION: VITAL SIGNS: Temperature 98.6, pulse 72, respiratory rate 21, blood pressure 153/53, O2 saturation 100% nasal cannula. General: Is well-developed male. No distress at this time. HEENT: Pupils equal, round, reactive to light. Extraocular movement intact. Ear, nose and throat pink and moist. Neck: Supple. Cardiovascular: Regular rate and rhythm. S1 and S2 auscultated. Pulmonary: Diffuse rhonchi. Gastrointestinal: Soft, nontender, nondistended. Bowel sounds positive. LABORATORY DATA: White blood cells 10.86, red blood cells 2.62, hemoglobin 7.9, hematocrit 24.7. Sodium 134, potassium 5.5, BUN 69, creatinine 4.3, calcium 8.0. ASSESSMENT AND PLAN: This 80-year-old male presented with shortness of breath and persistent productive cough. 1. Right lower lobe pneumonia failing outpatient therapy. Continue Levaquin. 2. Atrial fibrillation appears to be rate controlled. Continue current medication. 3. Chronic obstructive pulmonary disease. Continue bronchodilators as scheduled. 4. Chronic kidney disease. Continue to monitor and continue regular medications. 5. Anemia. Will continue to monitor. Thank you for the courtesy of this consult. cc: MD Miguel Ruano MD
[2016-11-11] MEDS: DUONEB (A & A) INH SCH ×4 (03:30→21:10)
[2016-11-11] MEDS: MUCOMYST 20% INH SCH ×3 (03:30→21:10)
[2016-11-11] MEDS: LEVAQUIN PO SCH (08:10)
[2016-11-11] MEDS: PREDNISONE PO SCH (08:11)
[2016-11-11] MEDS: CORDARONE PO SCH (08:11)
[2016-11-11] MEDS: TESSALON PO SCH ×2 (08:11→16:14)
[2016-11-11] MEDS: VITAMIN B-12 PO SCH (08:11)
[2016-11-11] MEDS: ZAROXOLYN PO SCH (08:11)
[2016-11-11] MEDS: VITAMIN D PO SCH (08:11)
[2016-11-11] MEDS: PRILOSEC PO SCH ×2 (08:11→20:54)
[2016-11-11] MEDS: COREG PO SCH ×2 (08:11→20:54)
[2016-11-11] MEDS: HEPARIN SUBQ SCH ×2 (08:12→20:54)
[2016-11-11] MEDS: LASIX IV SCH (08:12)
[2016-11-11] MEDS: SPIRIVA INH SCH (08:25)
[2016-11-11] MEDS: ADVAIR 500/50 DISKUS INH SCH (08:25)
--- NOTE | 2016-11-11 09:47 | Diag Imaging Result Document ---
PROCEDURE NAME: CHEST-1 VIEW - 11/11/2016 AP PORTABLE CHEST AT 0840 HOURS: FINDINGS: There continues to be fibrosis extending from the hilar region to the lateral pleura in the left upper chest. The lungs are actually better expanded than on 11/07/2016. There continues to be some basilar and perihilar opacity on the right. There may be some pleural fluid in the right costophrenic sulcus. IMPRESSION: Stable or slightly improved since 11/07/2016.
[2016-11-11 10:38] LABS: CALCIUM 8.1 mg/dL (8.8-10.2); POTASSIUM 4.3 mmol/L (3.5-5.1)
[2016-11-11] MEDS ORDERED: FLEET ENEMA PR ONE (11:58)
[2016-11-11] MEDS: PATIENT'S OWN MED PO SCH (14:37)
--- NOTE | 2016-11-11 15:00 | PROGRESS NOTE ---
DATE: 11/11/2016 PRESENT ILLNESS: The patient is being treated for Pseudomonas pneumonia with p.o. Levaquin and IV ceftazidime. Patient complained of obstipation. The hospitalist ordered medication for it. MEDICATIONS: As mentioned above, namely is on p.o. Levaquin and IV ceftazidime. PHYSICAL EXAMINATION: Vital Signs: Temperature is 98.4, pulse 82, respirations 18, blood pressure 106/57. General: This is an ill-appearing, elderly male. He is in no acute distress. Lungs: Bilateral rhonchi. Cardiovascular: The heart rate was regular. Abdomen: Slightly firm and distended. LAB AND X-RAY: [place] [address], hemoglobin 8.3 and platelet count 484,000. Creatinine is 4.9. GFR is 11. The repeat sputum culture grew normal joie and yeast. The blood and urine cultures are sterile. Chest x-ray showed improvement in the right lung infiltrate. ASSESSMENT AND PLAN: The patient has Pseudomonas pneumonia. I plan to continue ceftazidime and Levaquin. The doses of Levaquin and ceftazidime have been modified because of the patient's end- stage renal disease. COMORBIDITIES: Include COPD, end-stage renal disease, history of lung cancer, gastroesophageal reflux disease and pulmonary fibrosis. cc: Esvin Willoughby MD MTDDioni
--- NOTE | 2016-11-11 18:50 | PROGRESS NOTE ---
DATE: 11/11/2016 SUBJECTIVE: Today Mr. Lane refers to be doing fine. Shortness of breath has improved. He is coughing and bringing up some yellowish sputum expectoration. His main problem today is that he has not been able to have any bowel movement since he is in the hospital. OBJECTIVELY: Vitals: Blood pressure is 104/71, pulse is 70 respirations 20, temperature 98.0 degrees. General: Mr. Lane 80-year-old male. He was in bed, did not seem to be in any distress. HEENT: Mucosa is pink and moist. Anicteric. Acyanotic. Neck: Supple. Chest: Air entry was bilaterally reduced. There is a few bibasilar crepitations and end exploratory wheezing more so on the left posterior lung field. Cardiovascular: Regular rate and rhythm. Abdomen: Soft, slightly distended. Bowel sounds are hypoactive. There is an old midline surgical scar on the anterior abdominal wall. Extremities: No pedal edema. 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 LABORATORY DATA: Chemistry is reviewed. BUN is 69, creatinine is 4.9. I's and O's. Patient had 1700 urine output yesterday. ASSESSMENT: 1. Acute respiratory distress on presentation. Sounds to be a multifactorial including right lower lobe pneumonia and pleural effusions. 2. Right lower lobe pneumonia. Patient is being treated with double coverage for Pseudomonas and infectious disease is on board. 3. Pulmonary edema with bilateral pleural effusions likely due to acute on chronic congestive heart failure. 4. Chronic obstructive pulmonary disease with possible exacerbation. Will continue with antibiotics and bronchodilator therapy as well as steroids. Patient's lung findings have significantly improved. 5. Chronic kidney disease stage 5. Patient is making good urine output. Creatinine worsened slightly overnight so I have changed his intravenous Lasix to p.o. 6. Hyperkalemia. This has improved with Kayexalate and Veltassa. 7. Constipation. The patient did not respond to MiraLAX and other symptomatic treatment for the past 3 days. We will therefore give him an enema to see if that will help. 8. History of hiatal hernia noted. 9. Anemia due to chronic kidney disease. 10. Acute on chronic diastolic heart failure. 11. 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 This was diagnosed in 2013 and follows up with Dr. Amor on outpatient basis. PLAN: So in general I think Mr. Lane is doing a whole lot better. Came in because of shortness of breath which I think was a combination of acute on chronic diastolic heart failure and the pneumonia. Patient was here just a few weeks ago. Was treated for pseudomonal pneumonia. So at this point he is getting double coverage for Pseudomonas. I will be waiting on Dr. Willoughby to make a decision which p.o. antibiotics patient will be needing upon discharge. The other problem is about his constipation which we given him Fleet enema to see if that will help. I think if the patient has bowel movement by tomorrow and he continues to show clinical stability will be able to discharge him within a day or 2 if it is okay with Dr. Willoughby and Dr. Singh who are both following the patient. cc: Krystian Black MD
[2016-11-11] MEDS: DESYREL PO SCH (20:54)
[2016-11-11] MEDS: TAZIDIME 0.5 GM in NS 50 ML IV SCH (23:09)
[2016-11-12] MEDS: DUONEB (A & A) INH SCH ×4 (03:37→20:45)
[2016-11-12] MEDS: MUCOMYST 20% INH SCH ×5 (03:37→20:45)
[2016-11-12 07:13] LABS: MANUAL DIFF NEEDED? NO
[2016-11-12 07:34] LABS: CALCIUM 7.9 mg/dL (8.8-10.2); POTASSIUM 3.6 mmol/L (3.5-5.1)
[2016-11-12 07:41] LABS: BASO% 0.3 % (0.0-0.8); EOS# 0.03 X1000 (0.0-0.7); EOS% 0.4 % (0.0-10.0); HEMATOCRIT 23.2 % (42.0-52.0); HEMOGLOBIN 7.4 g/dL (14.0-18.0); IMM GRAN# 0.04 X1000 (0.0-0.04); IMM GRAN% 0.6 % (0.0-0.5); LYMPH# 0.73 X1000 (1.2-3.4); LYMPH% 10.7 % (20.5-51.1); MCH 29.5 PG (27-31); MCHC 31.9 g/dL (33-37); MCV 92.4 FL (81-99); MONO# 0.69 X1000 (0.11-0.59); MONO% 10.1 % (1.7-9.3); MPV 8.7 FL (7.4-10.4); NEUT% 77.9 % (42.2-75.2); PLT 412 X1000 (130-400); RBC 2.51 XMIL (4.7-6.1)
[2016-11-12] MEDS: ADVAIR 500/50 DISKUS INH SCH (07:48)
[2016-11-12] MEDS: SPIRIVA INH SCH (07:49)
[2016-11-12] MEDS: LASIX PO SCH (09:00)
[2016-11-12] MEDS: LEVAQUIN PO SCH (09:00)
[2016-11-12] MEDS: ZAROXOLYN PO SCH (09:00)
[2016-11-12] MEDS: HEPARIN SUBQ SCH ×2 (09:00→20:33)
[2016-11-12] MEDS: TESSALON PO SCH ×3 (09:00→19:20)
[2016-11-12] MEDS: COREG PO SCH ×2 (09:00→20:33)
[2016-11-12] MEDS: PREDNISONE PO SCH (09:00)
[2016-11-12] MEDS: PRILOSEC PO SCH ×2 (09:00→20:33)
[2016-11-12] MEDS: CORDARONE PO SCH (09:01)
[2016-11-12] MEDS: VITAMIN D PO SCH (09:01)
[2016-11-12] MEDS: PATIENT'S OWN MED PO SCH (09:01)
[2016-11-12] MEDS: VITAMIN B-12 PO SCH (09:01)
[2016-11-12] MEDS ORDERED: NS 500 ML ONE (10:56)
[2016-11-12] MEDS ORDERED: GOLYTELY PO ONE (11:30)
--- NOTE | 2016-11-12 11:58 | PROGRESS NOTE ---
DATE: 11/12/2016 SUBJECTIVE: The patient reports feeling fine. Less shortness of breath definitely. He denies any fever or chills. He is still We tried enemas yesterday. He had just 1 bowel movement. He is still complaining of some abdominal fullness. OBJECTIVE: Vital Signs: Temperature 98.4 degrees, heart rate 70, respiratory rate 20, blood pressure 113/92, O2 saturation 95% on 3 L of oxygen by nasal cannula. General: This is a chronically ill-looking, frail, 80-year-old male, lying in bed in no acute distress. HEENT: Head is normocephalic and atraumatic. Anicteric sclerae and pale conjunctivae. Mucous membranes moist. Neck supple. No JVD noted. No carotid bruits. No lymphadenopathy. No thyromegaly. Cardiovascular: S1-S2 heard. No murmurs, gallops, or rubs. Regular rate and rhythm. Respiratory: Decreased air entry globally with fever. A few bibasilar crepitations. No wheezing in the left side of the pulmonary field. Abdomen is soft. A little bit distended but nontender to palpation. Bowel sounds present but hypoactive. No organomegaly. There is an old midline surgical scar on the anterior abdominal wall. Extremities: No clubbing, cyanosis, or edema. Peripheral pulses present in both legs. Neurologic: Patient is alert and oriented x3. Hard of hearing. Moves 4 extremities. LABORATORY DATA: White cell count 6.81, hemoglobin 7.4, hematocrit 23.2, platelets 412,000. BMP unremarkable except BUN 81, creatinine 5.1. ASSESSMENT AND PLAN: 1. Acute respiratory failure on presentation. Now he is back to 3 L of oxygen by nasal cannula which he usually used between 2 and 3 actually. We will continue with same management. 2. Right lower lobe pneumonia. Patient is getting ceftazidime and Levaquin for this condition. Dr. Willoughby from Infectious Disease is following this patient. We will wait on him to see for how long this patient will need antibiotics. 3. Chronic obstructive pulmonary disease exacerbation. We will continue with bronchodilators and antibiotics as we mentioned above. The patient is on also IV steroids as well. 4. Chronic kidney disease, stage 5. Patient is still making good urine and creatinine around baseline. 5. Hyperkalemia. That condition has resolved completely. 6. Constipation. We have started the patient on GoLYTELY because, yesterday, he had just one small bowel movement after an enema. We will see how this patient does. 7. Pulmonary edema with bilateral pleural effusions. This is likely due to chronic congestive heart failure but at this time, although he is having leaking x-ray some still crepitations present in both physical examination and, I think this patient is doing fine. Chest x-ray from yesterday showed stable or slightly improved x-ray. 8. Anemia due to chronic kidney disease. The hemoglobin today is 7.4, so I prefer to transfuse 1 unit of blood while he is in the hospital. 9. History of adenocarcinoma with bronchial alveolar pattern. This condition was diagnosed in [address] Amor follows on an outpatient bases. 10. Physical deconditioning. Patient is working with physical therapy. This patient refused to go to any rehab facility, so we will set up home health upon discharge. 11. Overall, this patient is doing good, and we will see for how long she is planning to put this patient on antibiotics, so we can discharge him home with home health. He is almost back to baseline in terms of oxygen needs. 12. For constipation, we will try GoLYTELY and see how he does. cc: Robbie Ruth MD
--- NOTE | 2016-11-12 16:44 | PROGRESS NOTE ---
DATE: 11/12/2016 PRESENT ILLNESS: The patient has Pseudomonas pneumonia. He also has obstipation which has been partially relieved with laxatives. MEDICATIONS: This is day 4 of treatment with p.o. Levaquin and IV ceftazidime. PHYSICAL EXAMINATION: Vital Signs: Temperature is 97.8 degrees, pulse 65, respirations 18, blood pressure 133/81. Generally: This is an ill-appearing, elderly male. He is in no acute distress. Lungs: Clear to auscultation. Cardiovascular: Heart rate was regular. Abdomen: Soft and nontender. The patient's IV site is not erythematous or swollen. LABORATORY AND X-RAY: There is no new x-ray. The CBC for today shows white count of 6810, hemoglobin 7.4 and platelet count 412,000. Creatinine is 5.1. GFR is 4. ASSESSMENT AND PLAN: Patient has Pseudomonas pneumonia. I plan to continue treatment with Levaquin and ceftazidime. COMORBIDITIES: Include COPD, end-stage renal disease, history of lung cancer, gastroesophageal reflux disease and pulmonary fibrosis. cc: Esvin Willoughby MD
[2016-11-12] MEDS: DESYREL PO SCH (20:33)
[2016-11-13] MEDS: TESSALON PO SCH ×3 (00:24→16:14)
[2016-11-13] MEDS: TAZIDIME 0.5 GM in NS 50 ML IV SCH (00:24)
[2016-11-13] MEDS: DUONEB (A & A) INH SCH ×3 (03:35→15:11)
[2016-11-13] MEDS: MUCOMYST 20% INH SCH ×3 (03:35→15:12)
[2016-11-13] MEDS: SPIRIVA INH SCH (09:28)
[2016-11-13] MEDS: ADVAIR 500/50 DISKUS INH SCH (09:29)
[2016-11-13] MEDS: LASIX PO SCH (09:42)
[2016-11-13] MEDS: VITAMIN B-12 PO SCH (09:42)
[2016-11-13] MEDS: PRILOSEC PO SCH (09:42)
[2016-11-13] MEDS: LEVAQUIN PO SCH (09:42)
[2016-11-13] MEDS: COREG PO SCH (09:42)
[2016-11-13] MEDS: PREDNISONE PO SCH (09:42)
[2016-11-13] MEDS: ZAROXOLYN PO SCH (09:42)
[2016-11-13] MEDS: VITAMIN D PO SCH (09:42)
[2016-11-13] MEDS: CORDARONE PO SCH (09:42)
[2016-11-13] MEDS: HEPARIN SUBQ SCH (09:42)
[2016-11-13] MEDS: PATIENT'S OWN MED PO SCH (10:42)
[2016-11-13 12:30] LABS: PROTIME 10.5 Seconds (9.2-11.7)
[2016-11-13 12:37] LABS: MANUAL DIFF NEEDED? NO
[2016-11-13 12:50] LABS: BASO% 0.2 % (0.0-0.8); EOS# 0.03 X1000 (0.0-0.7); EOS% 0.5 % (0.0-10.0); HEMATOCRIT 32.1 % (42.0-52.0); HEMOGLOBIN 10.7 g/dL (14.0-18.0); IMM GRAN# 0.04 X1000 (0.0-0.04); IMM GRAN% 0.6 % (0.0-0.5); LYMPH# 0.81 X1000 (1.2-3.4); LYMPH% 12.7 % (20.5-51.1); MCH 30.2 PG (27-31); MCHC 33.3 g/dL (33-37); MCV 90.7 FL (81-99); MONO# 0.76 X1000 (0.11-0.59); MONO% 11.9 % (1.7-9.3); MPV 8.4 FL (7.4-10.4); NEUT% 74.1 % (42.2-75.2); PLT 409 X1000 (130-400); RBC 3.54 XMIL (4.7-6.1)
[2016-11-13] MEDS ORDERED: NS 250 ML ONE (13:54)
--- NOTE | 2016-11-13 16:16 | PROGRESS NOTE ---
DATE: 11/13/2016 PRESENT ILLNESS: Patient has Pseudomonas pneumonia. MEDICATIONS: He is on day 5 of treatment with p.o. Levaquin and IV ceftazidime. Both doses have been reduced because of the patient's end-stage renal disease. PHYSICAL EXAMINATION: Vital Signs: Temperature is 97.8 degrees, pulse 62, respirations 18, blood pressure 146/88. General: This is a chronically ill-appearing, elderly male who is in no acute distress. Cardiovascular: Regular heart rate. Lungs: Scattered rhonchi bilaterally. Abdomen: Soft and nontender. The patient's PICC site is not erythematous or swollen. The patient finally did have a large bowel movement today and his abdomen does not seem to be distended. LAB AND X-RAY: There is no new x-ray. The lab for today shows a CBC with a white count of 6370, hemoglobin 10.7, and platelet count 409,000. Creatinine is 5.1. GFR is 11. ASSESSMENT AND PLAN: Patient has Pseudomonas pneumonia. I am going to treat him with these antibiotics for 3 more weeks because he has had a difficult time getting rid of the pneumonia. Also I plan to see the patient in my office in 3 weeks at which time I will examine him and also get a chest x- ray. COMORBIDITIES: Include COPD, end-stage renal disease, history of lung cancer, gastroesophageal reflux disease and pulmonary fibrosis. cc: Esvin Willoughby MD MTDD
[2016-11-13 16:27] VITALS: BP 142/76
--- NOTE | 2016-11-14 07:35 | DISCHARGE SUMMARY ---
ADMISSION DATE: 11/07/2016 DISCHARGE DATE: 11/13/2016 CONSULTATIONS: Dr. Singh, pulmonology. PERTINENT PROCEDURES: Chest CT essentially unchanged from prior. DISCHARGE DIAGNOSES: 1. Acute respiratory failure on presentation, now back on 3 L of O2. 2. Right lower lobe pneumonia followed by Dr. Esvin Willoughby. Continue with PO Levaquin and a Medrol dose pack, as well as bronchodilators. 3. Chronic obstructive pulmonary disease exacerbation resolved. 4. Chronic kidney disease stage V, making good urine. Creatinine is at baseline. 5. Hypokalemia resolved. 6. Constipation. Continue bowel regimen. 7. Pulmonary edema and bilateral pleural effusions improved. 8. Anemia secondary to chronic kidney disease stable. 9. Status post 1 unit of packed red blood cells. 10. History of adenocarcinoma with bronchial alveolar pattern. Follow up Dr. Amor on outpatient basis. 11. Physical deconditioning. Patient is working with physical therapy. Refused rehab. Will be discharged home with home health. HOSPITAL COURSE: Briefly, Mr. Lane is an 80-year-old gentleman discharged on the with oral antibiotics. Came to the ED with persistent productive cough, shortness of breath. Has a history of COPD and atrial fibrillation, prior lung cancer, MRSA pneumonia, as well as course of antibiotics with Levaquin for a Pseudomonas pneumonia for which he was supposed to be taken 3 weeks of Levaquin per Dr. Willoughby. He has not had any fevers. He had worsening shortness of breath. Worsening cough. Workup in the ED revealed a white count of 14, hemoglobin 9, hematocrit 28, a platelet count of 543,000. Creatinine was at baseline, although his BUN was up. He has chronic kidney disease stage V not requiring hemodialysis at this point. A chest x-ray revealed worsening right lower lobe infiltrate with possible effusion. He was admitted for recurrent pneumonia failing outpatient treatment. Started on Levaquin, based on sensitivities and Pseudomonas obtained from his sputum. Repeat blood and sputum cultures and an ID consult as well as pulmonology. He was continued on supplemental O2, bronchodilators and aggressive pulmonary toilet. Dr. Singh agreed with treatment. It was also noted that the patient had 3 admissions in 2015. This will make the patient's 4th admission in 2017. We did put in a consult for palliative care to speak with the patient about his goals of care. However, patient family and refused to speak with them. Secondary to patient's generalized weakness, he was also offered rehab and he also refused rehab. Clinically the patient has improved. His white count has gone down. He has remained afebrile throughout his admission. PHYSICAL EXAMINATION: Vital signs have remained stable. His oxygen demand has gone back down to 2-3 L nasal cannula which is his home O2. He is less short of breath. He did have a bout of constipation. He was started on a bowel regimen. Patient has now been having bowel movements. Dr. Hair feels that he is appropriate for discharge today. He is being discharged on p.o. antibiotics as well as bronchodilators and his home O2. DISCHARGE DIET: Renal. DISCHARGE MEDICATIONS: 1. Mucomyst 3 mL inhaled RT 4 times a day. 2. DuoNeb 3 mL inhaled RT 4 times a day. 3. Ventolin inhaler 18 g inhaled p.r.n. 4. Amiodarone 200 mg p.o. daily. 5. Tessalon Perles 100 mg p.o. q. 8 hours. 6. Coreg 6.25 mg p.o. b.i.d. 7. Vitamin D 3000 units p.o. daily. 8. Vitamin B12 1000 mcg p.o. daily. 9. Advair Diskus 550 one each inhaled daily. 10. Folic acid/multivitamin 40 mcg p.o. daily. 11. Lasix 40 mg p.o. daily. 12. Levaquin 250 mg p.o. daily for 2 weeks. 13. Medrol Dosepak as directed. 14. Protonix 40 mg p.o. b.i.d. 15. MiraLAX 17 g p.o. p.r.n. 16. Spiriva 1 puff inhaled RT daily. 17. Desyrel 100 mg p.o. at bedtime. FOLLOW-UP: Patient is being discharged home with home health. He will follow up with his primary care physician, Dr. Judith Jolly as well as Dr. Esvin Willoughby and Dr. Singh. I believe he will also be followed by [facility] for continuation of IV Ceftazidime as instructed per Dr. Esvin Willoughby. The patient can return to the ED for any worsening of symptoms. DISCHARGE TIME: Greater than 30 minutes. Dictated by REGINA Simmons for Robbie Ruth MD cc: MD Robbie Braun MD
== END 2016-11-13 17:13 | disposition home health service (06) ==
LOC: ED 16:10 → 3N 22:10 → SUATTDRO 22:10
PROVIDERS: ATTEND Internal Medicine